=== PATIENT | male | born 1985 | race Caucasian/White ===

== ENCOUNTER 2017-01-02 21:37 | Emergency (ER) | payer OTHER ==
[~2017-01-02] VITALS: Ht 177.8 cm; Wt 79.9 kg
[2017-01-02] MEDS ORDERED: ONDANSETRON ODT 4 MG PO ONE (22:30)
[2017-01-02] MEDS ORDERED: ONDANSETRON ODT 4 MG ONE (22:33)
[2017-01-02 22:59] VITALS: BP 121/68
== END 2017-01-02 23:02 | disposition home or self-care (01) ==
LOC: ED 22:45
DX: S16.1XXA Strain of muscle, fascia and tendon at neck level, initial encounter (principal); S00.01XA Abrasion of scalp, initial encounter; S09.90XA Unspecified injury of head, initial encounter; R51 Headache; W22.09XA Striking against other stationary object, initial encounter; Y93.39 Activity, other involving climbing, rappelling and jumping off; Y99.8 Other external cause status; Y92.009 Unspecified place in unspecified non-institutional (private) residence as the place of occurrence of the external cause
CPT/HCPCS: 70450; 72125; 99284; Q0162